=== PATIENT | male | born 1970 | race Two or more races ===

== ENCOUNTER 2019-11-20 16:06 | Emergency (ER) | payer MEDICAID ==
[~2019-11-20] VITALS: Ht 175.3 cm; Wt 77.1 kg
[2019-11-20] MEDS ORDERED: LIDOCAINE 1% INJ 50 ML MDV IJ ONE (16:32)
[2019-11-20] MEDS ORDERED: LIDOCAINE HCL/PF 1% 30 ML VIAL TP ONE (17:00)
--- NOTE | 2019-11-20 17:49 | NUR ---
Incision site dressed Patient discharged to home in stable condition. Written and verbal after care instructions given. Patient verbalizes understanding of instruction.
[2019-11-20 17:50] VITALS: BP 128/72
== END 2019-11-20 17:51 | disposition home or self-care (01) ==
LOC: ER 16:06
DX: L02.512 Cutaneous abscess of left hand (principal); F19.90 Other psychoactive substance use, unspecified, uncomplicated
CPT/HCPCS: 10060; 99283; A6407; J3490 ×2

== ENCOUNTER 2019-11-23 12:44 | Emergency (ER) | payer MEDICAID ==
[~2019-11-23] VITALS: Ht 175.3 cm; Wt 77.1 kg
[2019-11-23 13:37] VITALS: BP 135/80
--- NOTE | 2019-11-23 15:00 | NUR ---
Wound on left hand cleaned and dressed By EMT Spencer Patient discharged to home in stable condition. Written and verbal after care instructions given. Patient verbalizes understanding of instruction.
== END 2019-11-23 15:15 | disposition home or self-care (01) ==
LOC: ER 12:44
DX: L02.512 Cutaneous abscess of left hand (principal); F15.10 Other stimulant abuse, uncomplicated; F19.10 Other psychoactive substance abuse, uncomplicated